=== PATIENT | female | born 1950 | race Caucasian/White ===

== ENCOUNTER → 2017-07-11 | Day surgery (SDC) | payer MEDICARE, OTHER ==
[2017-07-09 12:47] LABS: BASOPHILS % 0.7 % (0.0-1.0); EOSINOPHILS # (AUTO) 0.1 (0.0-0.4); EOSINOPHILS % 1.9 % (0.0-6.0); HEMATOCRIT 38.7 % (34.2-44.1); HEMOGLOBIN 12.5 g/dL (12.0-16.0); LYMPHOCYTES # (AUTO) 2.1 (1.0-3.2); LYMPHOCYTES % 34.9 % (18.0-39.1); MEAN CORPUSCULAR HEMOGLOBIN 32.5 pg (28-32); MEAN CORPUSCULAR HGB CONC 32.3 g/dL (31-35); MEAN CORPUSCULAR VOLUME 100.5 fL (81-99); MONOCYTES # (AUTO) 0.5 (0.2-0.8); MONOCYTES % 7.8 % (4.4-11.3); NEUTROPHILS # (AUTO) 3.2 (2.1-6.9); NEUTROPHILS % 54.5 % (38.7-80.0); PLATELET COUNT 250 x10e3/uL (140-360); RED BLOOD COUNT 3.85 x10e6/uL (3.6-5.1)
--- NOTE | 2017-07-09 12:48 | Diagnostic Imaging Report ---
PROCEDURE: X-RAY CHEST, TWO VIEWS COMPARISON: Chest CT 12/26/2016 INDICATIONS: PRE OPERATIVE CHEST X-RAY FOR CYSTOSCOPY FINDINGS: LUNGS: No consolidations or edema. Stable right lower lobe calcified granuloma. PLEURA: No effusions or pneumothorax. HEART \T\ MEDIASTINUM: The heart is within normal size-limits. BONES \T\ SOFT TISSUES: No acute findings. CONCLUSION: No acute thoracic abnormality. Dictated by: Emil Soto M.D. on 07/09/2017 at 12:56 Electronically approved by: Emil Soto M.D. on 07/09/2017 at 12:56
[2017-07-09 12:59] LABS: ANION GAP 14.4 mmol/L (8-16); CALCIUM 10.1 mg/dL (8.4-10.2); CREATININE, SERUM 1.83 mg/dL (0.57-1.11); POTASSIUM 4.4 mmol/L (3.5-5.1)
[~2017-07-11] MED LIST: ALDACTONE25 MG PO; ASPIR 8181 MG PO; ASPIRIN EC81 MG PO; BLACK COHOSH40 M1 PO; CLARITIN-D 241 EACH PO; DEXAMETHASONE SOD PHOS INJ 4 MG/ML VIAL ONE; DICYCLOMINE HCL10 MG PO; FENTANYL CITRATE/PF 100MCG/2 ML INJ ONE; FUROSEMIDE20 MG PO; IOPAMIDOL 610MG/1ML 300 MG/ML VIAL IV ONE; LEVOFLOXACIN 500MG/D5W 100ML 100 ML IV ONE; LIDOCAINE HCL 2% LOCAL INJ 5 ML SDV VIAL INJ ONE; LISINOPRIL10 MG PO; LYRICA50 MG PO; METOPROLOL SUCC50 MG PO; MIDAZOLAM HCL 2 MG/2 ML VIAL ONE; ONDANSETRON HCL INJ 2 MG/ML VIAL ONE; PANTOPRAZOLE SO40 MG PO; PRAVASTATIN PO; PROPOFOL IV EMULSION 10 MG/ML 20 ML VIAL ONE; SEVOFLURANE INHAL SOLN 250 ML PEN BTL ONE; TOPAMAX50 MG PO; TOPIRAMATE100 MG PO; TOPIRAMATE25 MG PO; XARELTO15 MG PO; [UNRECOGNIZED DRUG - OTHER] PO; [UNRECOGNIZED DRUG - OTHER] PO
--- NOTE | 2017-07-11 17:04 | Operative Report ---
DATE OF PROCEDURE: July 11, 2017 PREOPERATIVE DIAGNOSES 1. Multiple chronic urinary tract infections. 2. Clinical signs and symptoms of interstitial cystitis. POSTOPERATIVE DIAGNOSES 1. Multiple chronic urinary tract infections. 2. Clinical signs and symptoms of interstitial cystitis. PROCEDURES 1. Cystourethroscopy with hydrodistention (entirely separate procedure for clinical signs and symptoms of interstitial cystitis without hematuria). 2. Cystourethroscopy with left ureter catheterization and left retrograde pyelogram (separate procedure for multiple chronic urinary tract infections). 3. Cystourethroscopy with right ureter catheterization and right retrograde pyelogram (separate procedure for multiple chronic urinary tract infections). 4. Supervision of fluoroscopy. 5. Interpretation of retrograde pyelography. ANESTHESIA: General. ESTIMATED BLOOD LOSS: Minimal. COMPLICATIONS: None. INDICATIONS: Ms. Feldman is a 67-year-old female with multiple chronic urinary tract infections. She and I had a long discussion about alternatives, risks and benefits including doing nothing, cystoscopy, IVP, retrograde pyelograms, and renal ultrasound. Due to the nephrotoxic risks of dye, she elected to proceed with retrograde pyelograms. She voiced understanding of the options, alternatives, risks and benefits and elected to proceed. PROCEDURE IN DETAIL: After informed consent was obtained, the patient was taken to the operative suite and she was given prophylactic antibiotics. She was placed in the dorsal lithotomy position and sterilely prepped and draped in the standard fashion for cystoscopy. Atrophic vaginitis was noted. There was grade I to II cystocele. No evidence of masses. The urethra was catheterized with a 22.5-Iranian cystoscope and panendoscopy revealed no tumors and no stones. Both ureteral orifices were in normal anatomic location. There was some mild squamous metaplasia. Bilateral retrograde pyelograms were performed, which were normal. A hydrodistention was performed which revealed a capacity of 800 mL, no glomerulations and no Hunner's ulcers. The bladder was drained. The patient was awakened from anesthesia and transported to the recovery room in excellent condition. SUPERVISION OF FLUOROSCOPY, INTERPRETATION OF RETROGRADE PYELOGRAPHY: I was present throughout the entire procedure and I supervised the use of fluoroscopy. There was no radiologist present at any time during this procedure. Attention was turned toward the left and right ureteral orifices, which were catheterized with an 8-Iranian cone-tipped catheter in a retrograde fashion. Contrast was injected revealing delicate ureters, delicate pelvicaliceal systems, no evidence of filling defects and no evidence of hydronephrosis. IMPRESSION: Normal retrograde pyelograms. Job#: [id number] SHAWN
== END | disposition home or self-care (01) ==
LOC: OR 09:12
PROVIDERS: ATTEND Urology
DX: N39.0 Urinary tract infection, site not specified (principal); N95.2 Postmenopausal atrophic vaginitis; N39.46 Mixed incontinence; R35.1 Nocturia; I83.90 Asymptomatic varicose veins of unspecified lower extremity; G47.33 Obstructive sleep apnea (adult) (pediatric); K21.9 Gastro-esophageal reflux disease without esophagitis; K44.9 Diaphragmatic hernia without obstruction or gangrene; I12.9 Hypertensive chronic kidney disease with stage 1 through stage 4 chronic kidney disease, or unspecified chronic kidney disease; N18.9 Chronic kidney disease, unspecified; Z01.812 Encounter for preprocedural laboratory examination; Z01.818 Encounter for other preprocedural examination; Z79.02 Long term (current) use of antithrombotics/antiplatelets; Z86.718 Personal history of other venous thrombosis and embolism
CPT/HCPCS: 36415; 52005; 71020; 74420; 80048; 85025; C1758; J1100; J1956; J2001; J2250; J2405; Q9967

== ENCOUNTER → 2018-09-30 | Outpatient (CLI) | payer MEDICARE, OTHER ==
[~2018-09-30] MED LIST changes: -DEXAMETHASONE SOD PHOS INJ 4 MG/ML VIAL ONE; -FENTANYL CITRATE/PF 100MCG/2 ML INJ ONE; -IOPAMIDOL 610MG/1ML 300 MG/ML VIAL IV ONE; -LEVOFLOXACIN 500MG/D5W 100ML 100 ML IV ONE; -LIDOCAINE HCL 2% LOCAL INJ 5 ML SDV VIAL INJ ONE; -MIDAZOLAM HCL 2 MG/2 ML VIAL ONE; -ONDANSETRON HCL INJ 2 MG/ML VIAL ONE; -PROPOFOL IV EMULSION 10 MG/ML 20 ML VIAL ONE; -SEVOFLURANE INHAL SOLN 250 ML PEN BTL ONE
--- NOTE | 2018-09-30 18:27 | Diagnostic Imaging Report ---
EXAMINATION: CT of the face HISTORY: Facial trauma a week ago, status post fall, hit the face again concrete floor, bleeding. COMPARISON: None available TECHNIQUE: Multidetector helical axial images were acquired through the face without contrast and were reconstructed in bone and soft tissue algorithms. Images were viewed in multiplanar format. Dose modulation, iterative reconstruction, and/or weight based adjustment of the mA/kV was utilized to reduce the radiation dose to as low as reasonably achievable. FINDINGS: Bones: No acute facial fractures Facial soft tissues: Mild right forehead soft tissue swelling/abrasion, minimal periorbital and right premaxillary soft tissue swelling is also noted. Paranasal sinuses and drainage pathways: The frontal, ethmoidal, sphenoid and maxillary sinuses are clear. The ostiomeatal units, fronto-nasal and spheno-ethmoidal recesses are clear. Orbits contents: Unremarkable. Nasal septum: Right superior deviation Anatomic variations: No significant anatomic variations. Dentition: No acute abnormality of the visualized teeth. IMPRESSION: Right forehead, periorbital and premaxillary region soft tissue swelling without underlying acute facial fractures. The findings were discussed with DONYA Esquivel at the time of the dictation. Signed by: Dr. Adalgisa Chan M.D. on 09/30/2018 6:24 PM
== END ==
LOC: CT 17:15
PROVIDERS: ATTEND Family Medicine
DX: S00.11XD Contusion of right eyelid and periocular area, subsequent encounter (principal)
CPT/HCPCS: 70486

== ENCOUNTER → 2019-02-09 | Outpatient (CLI) | payer MEDICARE, OTHER ==
--- NOTE | 2019-02-09 15:32 | Diagnostic Imaging Report ---
EXAM: Renal Ultrasound INDICATION: ^URINARY TRACT INFECTION COMPARISON: None TECHNIQUE: Transverse and longitudinal images of the kidneys and bladder were obtained. FINDINGS: Right Kidney: Length: 10.5 cm Appearance: Normal echogenicity. Collecting system: No hydronephrosis Stones: None Cyst/Mass: None Left Kidney: Length: 9.7 cm Appearance: Normal echogenicity. Collecting system: No hydronephrosis Stones: Echogenic focus at the midpole measuring 3 mm with twinkle artifact. Cyst/Mass: Upper pole 1.4 x 0.9 x 1.4 cm simple cyst. Lower pole 1.2 x 1.2 x 1.0 cm simple cyst. Bladder: No mass or calculi. Estimated prevoid volume of 67 cc. Bilateral ureteral jets seen. Incidental note made of multiple echogenic foci throughout the spleen, consistent with calcified granulomas. IMPRESSION: No hydronephrosis. Left mid pole 3 mm echogenic focus with twinkle artifact may represent a nonobstructive calculus. Left upper and lower pole simple cysts as above. Signed by: Loco Escobedo MD on 02/09/2019 3:29 PM
== END ==
LOC: US 14:17
PROVIDERS: ATTEND Urology
DX: N39.0 Urinary tract infection, site not specified (principal)
CPT/HCPCS: 76770

== ENCOUNTER → 2020-01-04 | Day surgery (SDC) | payer MEDICARE, OTHER ==
[2019-12-31 11:36] LABS: BASOPHILS # (AUTO) 0.1 (0.0-0.1); BASOPHILS % 1.3 % (0.0-1.0); EOSINOPHILS # (AUTO) 0.4 (0.0-0.4); EOSINOPHILS % 6.3 % (0.0-6.0); HEMATOCRIT 31.1 % (34.2-44.1); HEMOGLOBIN 9.3 g/dL (12.0-16.0); LYMPHOCYTES # (AUTO) 1.8 (1.0-3.2); LYMPHOCYTES % 28.6 % (18.0-39.1); MEAN CORPUSCULAR HEMOGLOBIN 32.4 pg (28-32); MEAN CORPUSCULAR HGB CONC 29.9 g/dL (31-35); MEAN CORPUSCULAR VOLUME 108.4 fL (81-99); MONOCYTES # (AUTO) 0.7 (0.2-0.8); MONOCYTES % 10.2 % (4.4-11.3); NEUTROPHILS # (AUTO) 3.4 (2.1-6.9); NEUTROPHILS % 53.3 % (38.7-80.0); PLATELET COUNT 285 x10e3/uL (140-360); RED BLOOD COUNT 2.87 x10e6/uL (3.6-5.1); RED CELL DISTRIBUTION WIDTH 13.8 % (11.7-14.4)
[~2020-01-04] MED LIST changes: +FENTANYL CITRATE/PF 100MCG/2 ML INJ ONE; +GLUCAGON FOR INJ 1 MG VIAL ONE; +HYOSCYAMINE 0.125 MG TAB ONE; +LIDOCAINE HCL 2% LOCAL INJ 5 ML SDV VIAL INJ ONE; +MIDAZOLAM HCL 2 MG/2 ML VIAL ONE; +NAPROXEN250 MG PO; +OXYBUTYNIN CHLOR5 M1 PO; +PROPOFOL IV EMULSION 10 MG/ML 20 ML VIAL ONE
[2020-01-04 13:15] VITALS: BP 126/59
[2020-01-04 14:43] LABS: WBC,FECAL (FECAL LACTOFERRIN) NEGATIVE (NEGATIVE)
--- NOTE | 2020-01-04 14:54 | Operative Report ---
DATE OF PROCEDURE: 01/04/2020 SURGEON: Neil Gaona MD PROCEDURES: EGD with biopsies and colonoscopy with polypectomy and biopsies. INDICATIONS FOR EGD: Upper abdominal pain, heartburn. INDICATIONS FOR COLONOSCOPY: Surveillance colonoscopy, personal history of colon polyps, diarrhea. MEDICATIONS: The patient was done under MAC, please see anesthesiologist's note. PROCEDURE IN DETAIL: With the patient in the left lateral decubitus position, a flexible fiberoptic Olympus gastroscope was introduced into the esophagus under direct visualization without any difficulty. There was some patchy erythema noted in the distal esophagus. The scope was then advanced with ease into the stomach traversing a small hiatal hernia. Mucosa overlying the antrum and the body revealed some patchy erythema and [id number] edema, and biopsies were obtained and sent to stain for H. pylori. Pylorus was of normal contour and shape, was intubated with ease and the scope was advanced all the way to the second portion of the duodenum. Biopsies were obtained from the proximal second portion and the duodenal bulb to rule out sprue. The scope was then withdrawn back into the stomach and retroflexed, and mucosa overlying the fundus and the cardia appeared to be within normal limits. The scope was then straightened out, it was subsequently withdrawn, and the patient tolerated the procedure well. IMPRESSION: 1. Distal esophagitis, mild. 2. Small hiatal hernia. 3. Gastritis, biopsied, biopsies sent to stain for Helicobacter pylori. 4. Rule out sprue. PLAN: Follow up histology. Initiate Protonix 40 mg one p.o. q.a.m. before meals. The patient was then turned around and after adequate lubrication of the anal canal, a flexible fiberoptic Olympus colonoscope was inserted into the rectum with ease and advanced all the way to the cecum. Mucosa overlying the cecum appeared to be within normal limits. The ileocecal valve could not be intubated. The scope was then withdrawn slowly, mucosa overlying the ascending appeared to be within normal limits. A minute polyp was noted in the distal transverse that was removed per the cold biopsy forceps. Mild patchy inflammatory changes noted in the left colon and the rectum, and random biopsies were obtained. The scope was then retroflexed into the distal rectum and small internal hemorrhoids were noted, none of which was actively bleeding. The scope was then straightened out and it was subsequently withdrawn after securing an adequate stool specimen that was sent for the appropriate stool studies. The patient tolerated the procedure well. IMPRESSION: 1. Transverse colon polyp, removed per the cold biopsy forceps. 2. Mild patchy inflammatory changes left colon, biopsies obtained. 3. Proctitis, mild, biopsied. 4. Internal hemorrhoids, none actively bleeding. PLAN: Follow up histology. Follow up stool studies. Initiate Bentyl 10 mg one p.o. t.i.d. and VSL#3 one p.o. b.i.d. The patient might benefit from a followup colonoscopy in 5 years. Neil Gaona MD [facility] /[id number] cc: Branden Murphy DO
[2020-01-05 15:43] LABS: C DIFFICILE TOXIN A&B AMP PROB NEGATIVE (NEGATIVE)
== END | disposition home or self-care (01) ==
LOC: OR 08:59
PROVIDERS: ATTEND Internal Medicine Gastroenterology
DX: K29.50 Unspecified chronic gastritis without bleeding (principal); K63.5 Polyp of colon; K20.9 Esophagitis, unspecified; K21.9 Gastro-esophageal reflux disease without esophagitis; K44.9 Diaphragmatic hernia without obstruction or gangrene; K62.89 Other specified diseases of anus and rectum; K63.89 Other specified diseases of intestine; K64.8 Other hemorrhoids; B96.81 Helicobacter pylori [H. pylori] as the cause of diseases classified elsewhere; I10 Essential (primary) hypertension; D64.9 Anemia, unspecified; I44.0 Atrioventricular block, first degree; I49.3 Ventricular premature depolarization; M19.90 Unspecified osteoarthritis, unspecified site; Z91.041 Radiographic dye allergy status; Z88.0 Allergy status to penicillin; Z01.810 Encounter for preprocedural cardiovascular examination; Z01.812 Encounter for preprocedural laboratory examination; Z11.59 Encounter for screening for other viral diseases; Z79.02 Long term (current) use of antithrombotics/antiplatelets; Z86.711 Personal history of pulmonary embolism; Z80.0 Family history of malignant neoplasm of digestive organs
CPT/HCPCS: 36415; 43239; 45380; 83630; 83993; 85025; 87045; 87177; 87328; 87493; 87635; 88305; 88312; 93005; J1610; J2001; J2250; J2704; J3010; 45378

== ENCOUNTER → 2020-01-18 | Outpatient (CLI) | payer MEDICARE, OTHER ==
[~2020-01-18] MED LIST changes: -FENTANYL CITRATE/PF 100MCG/2 ML INJ ONE; -GLUCAGON FOR INJ 1 MG VIAL ONE; -HYOSCYAMINE 0.125 MG TAB ONE; -LIDOCAINE HCL 2% LOCAL INJ 5 ML SDV VIAL INJ ONE; -MIDAZOLAM HCL 2 MG/2 ML VIAL ONE; -PROPOFOL IV EMULSION 10 MG/ML 20 ML VIAL ONE
--- NOTE | 2020-01-18 10:39 | Diagnostic Imaging Report ---
EXAM: Renal Ultrasound INDICATION: ^UTI COMPARISON: None TECHNIQUE: Transverse and longitudinal images of the kidneys and bladder were obtained. FINDINGS: Right Kidney: Length: 10.0 cm Appearance: Normal echogenicity. Collecting system: No hydronephrosis Stones: None Cyst/Mass: None Left Kidney: Length: 9.2 cm Appearance: Normal echogenicity. Collecting system: No hydronephrosis Stones: None Cyst/Mass: Upper pole 1.7 cm anechoic simple cyst and lower pole 1.3 cm anechoic simple cyst. Bladder: No mass or calculi. Bilateral ureteral jets visualized. Prevoid volume estimate of 219cc. IMPRESSION: No hydronephrosis or renal calculi. Left renal simple cysts. Signed by: Loco Escobedo MD on 01/18/2020 10:35 AM
== END ==
LOC: US 08:15
PROVIDERS: ATTEND Urology
DX: N39.0 Urinary tract infection, site not specified (principal)
CPT/HCPCS: 76770

== ENCOUNTER → 2020-02-09 | Day surgery (SDC) | payer MEDICARE, OTHER ==
[2020-02-04 09:33] LABS: BASOPHILS # (AUTO) 0.1 (0.0-0.1); BASOPHILS % 1.4 % (0.0-1.0); EOSINOPHILS # (AUTO) 0.4 (0.0-0.4); EOSINOPHILS % 7.5 % (0.0-6.0); HEMATOCRIT 32.3 % (34.2-44.1); HEMOGLOBIN 9.8 g/dL (12.0-16.0); LYMPHOCYTES # (AUTO) 1.7 (1.0-3.2); MEAN CORPUSCULAR HEMOGLOBIN 30.3 pg (28-32); MEAN CORPUSCULAR HGB CONC 30.3 g/dL (31-35); MONOCYTES # (AUTO) 0.6 (0.2-0.8); MONOCYTES % 11.6 % (4.4-11.3); NEUTROPHILS # (AUTO) 2.4 (2.1-6.9); NEUTROPHILS % 46.3 % (38.7-80.0); PLATELET COUNT 222 x10e3/uL (140-360); RED BLOOD COUNT 3.23 x10e6/uL (3.6-5.1); RED CELL DISTRIBUTION WIDTH 11.9 % (11.7-14.4)
[2020-02-04 09:46] LABS: INR 0.93; PROTHROMBIN TIME 12.9 seconds (11.9-14.5)
[2020-02-04 09:47] LABS: PARTIAL THROMBOPLASTIN TIME 31.7 seconds (23.8-35.5)
[2020-02-04 09:54] LABS: ANION GAP 10.5 mmol/L (8-16); CALCIUM 9.6 mg/dL (8.4-10.2); CREATININE, SERUM 1.15 mg/dL (0.57-1.11); POTASSIUM 4.5 mmol/L (3.5-5.1)
--- NOTE | 2020-02-04 10:08 | Diagnostic Imaging Report ---
X-ray chest 2 views Comparison: None History: Preop Findings: Central airways unremarkable. Heart size enlarged. Atherosclerotic tortuous aorta. No pleural effusion. No pneumothorax. An oval nodule measuring 5 mm in the right lower lung zone. Otherwise lung charles unremarkable. No abnormality of the visualized skeletal structures on acute basis. Upper abdomen unremarkable. Impression: A small right lung nodules. Comparison with previous imaging or a chest CT should be considered. Otherwise unremarkable. Signed by: iRshi Thornton MD on 02/04/2020 10:05 AM
[~2020-02-09] MED LIST changes: +ACETAMINOPHEN 1000 MG/100 ML IV ONE; +BACITRACIN 50,000 UNIT VIAL ONE; +CEFAZOLIN SOD 1 GM/NS 50ML 100 ML IV ONE; +DEXAMETHASONE SOD PHOS INJ 4 MG/ML VIAL ONE; +FENTANYL CITRATE/PF 100MCG/2 ML INJ ONE; +FOLIC ACID PO; +HYDROCODONE/APAP 10MG-325MG TAB ONE; +KETOROLAC TROMETHAMINE 30 MG/ML VIAL ONE; +LIDOCAINE HCL 2% LOCAL INJ 5 ML SDV VIAL INJ ONE; +MONTELUKAST SOD10 MG PO; +ONDANSETRON HCL INJ 2MG/ML 2ML 2 MG/ML VIAL ONE; +PROPOFOL IV EMULSION 10 MG/ML 20 ML VIAL ONE; +ROPIVACAINE 0.5% 5 MG/ML 30 ML SDV ONE; +ROPIVACAINE 246.25 MG, EPINEPHRINE HCL 1:1000 1ML 0.5 MG, CLONIDINE HCL 0.08 MG, KETORO... INJ ONE; +TRANEXAMIC ACID 1,000 MG/10 ML ML ONE
--- NOTE | 2020-02-09 09:06 | Diagnostic Imaging Report ---
X-ray right knee 3 views History: Postoperative Findings: Status post right knee total arthroplasty with orthopedic hardware in alignment. Anterior surgical staple line, soft tissue swelling and air consistent with the postop status. Impression: Post right knee total arthroplasty. Signed by: Rishi Thornton MD on 02/09/2020 9:03 AM
[2020-02-09 13:35] VITALS: BP 105/55
--- NOTE | 2020-02-09 15:28 | Operative Report ---
DATE OF PROCEDURE: 02/09/2020 SURGEON: LYNN CASH MD LOCATION: Place of surgery is [facility]. HISTORY: Ms. Feldman is a well-known patient of mine. I have been seeing for several years. Recently being treating her for pain of her right knee. The 4 efforts of conservative treatment was completed, consisting of multiple injections, anti-inflammatories, home therapy program or NSAIDs, all of which have failed to resolve her pain symptoms fully and/or completely. The patient elected to proceed along with right total knee arthroplasty and to forgo any further conservative treatment. The risks and benefits of surgery outlined to her, consisting but not limited to the following: Infection, blood loss, nerve, vessel or tendon injury, DVT, ongoing pain, stiffness, leg-length discrepancy, nerve injury including a peroneal palsy and/or neurapraxia. DESCRIPTION OF PROCEDURE: The patient was seen and identified in the preoperative holding area. The right knee was marked by myself. The patient agreed. Consent was confirmed. The patient received regional block by Anesthesia and then brought back to the operative suite. Time-out was taken for Ms. Iva Feldman for right total knee arthroplasty. All were in agreement including nursing staff, Anesthesia, and myself. The patient was given a successful general intubation anesthetic. The patient was then transferred over to the operative table. A nonsterile tourniquet was placed high in the right upper thigh. The right lower extremity was then sterilely prepped and draped in the usual standard fashion. The limb was exsanguinated and the tourniquet was inflated to approximately 250 mmHg. The initial 10 Bard-Vinod blade was used to make the initial skin incision starting from the superior pole of the patella extending down to the tibial tuberosity. A second knife was then used to make an incision, the medial arthrotomy was made. Degenerative joint fluid was suctioned out. The patella was then carefully everted and the knee carefully flexed up, protecting the patellar tendon at all times. The patient has significant complete cartilage loss of all three compartments. There is significant scalloping of the medial tibial plateau. The remnant medial and lateral meniscus were resected. Medial and lateral retractors were placed in protecting the medial and lateral collateral ligaments as well as the lateral peroneal nerve throughout the entire procedure. The remnant ACL was resected. FEMORAL COMPONENT: The drill guide was used to make the entry point for the intramedullary femoral guide, which was placed in. Resection cut was made of the distal femur in 3 degrees of external rotation, 5 degrees of valgus. The femur was then sized and measured to be a size #4, and 4-in-1 cutting block was impacted. An oscillating saw was used to complete the anterior and posterior chamfer cuts were then completed. A trial #4 CR right femur was placed and had excellent fit circumferentially. TIBIAL COMPONENT: Attention was then turned to the tibial side. The tibial guide was placed in alignment with regard to proximal third of the tibial tuberosity, tibial shaft, and distal ankle joint and 2nd ray. Given the defect on the medial side, I went ahead and measured of the high side. A resection cut was made perpendicular to the tibia shaft with posterior 5-degree slope. The tibia was found and sized to be a measured size #4. The four universal tibial baseplate was placed in the correct rotation and alignment using 4 alignment rods proximally and distally with knee in full extension. Essential punch and keel were then completed. A trial reduction was carried out with a 9, 11, and 13 mm CS poly. The 13 mm CS poly gave the most stable fit, reestablishing the joint line. There is no instability at 0, 30, 60, and 90 degrees of flexion as well as full extension. PATELLA: Attention was then turned to the patella side. Resection cut was made off the patella to approximately 14 to 16 mm. The patella sized to 35. The 35 asymmetric patella was then correctly lateralized and the peg hole drills. Upon range of motion testing, the patient had excellent patellofemoral tracking throughout the entire arc of motion. Again, there was no varus or valgus or anterior or posterior instability noted. The trial components were removed. Copious irrigation was carried out with 6 L of antibiotic saline solution. A posterior intracapsular HANNY injection was completed with 100 mL of cocktail mixture in the usual standard fashion. The first, second, and final counts were found to be correct. Antibiotic cement was mixed on the back table and the final prosthesis was placed in consisting of a Holden Triathlon #4 CR right femur with a #4 universal tibial baseplate, with a 35 asymmetric patella with a 4 x 13 mm CS poly insert. The knee was allowed to harden in full extension and all the excess cement was removed. Final irrigation was carried out. Final counts were found to be correct. Upon range of motion testing, again the patient had excellent patellofemoral tracking throughout the entire arc of motion. There is no varus or valgus instability. No anterior-posterior instability with 0, 30, 60, and 90 degrees of flexion as well as full extension. The tourniquet was released. There was no acute pulsatile bleeding noted. Deep layer closure was completed beginning with capsule, 5 Ethibond, 0 Vicryl, 2-0 Vicryl. Skin was reapproximated with angelina and the patient was placed in Xeroform compressive dressing and subsequently transferred to PACU after successful extubation in stable condition. PREOPERATIVE DIAGNOSIS: Degenerative joint disease of the right knee. 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 PROCEDURE: Right total knee arthroplasty with the following components: 1. A Holden Triathlon #4 CR right femur, #4 universal tibial baseplate, 35 asymmetrical patella, with a CS poly insert 4 x 13 mm. 2. Intraarticular intracapsular HANNY injection of the right knee. ANESTHESIA: Regional block with general intubation anesthetic. ESTIMATED BLOOD LOSS: 100 mL. SPECIMENS: Bone and soft tissue. COMPLICATIONS: None. CONDITION: Stable to PACU. Again, intraoperative findings severe tricompartmental degenerative joint disease of the right knee. The patient was seen in PACU dressings are clean and dry. Capillary refills are brisk. Pain is well controlled. I did attempt to locate the after surgery, but he was not present locally. I did attempt to call him at [phone], as well as [phone], but there is no reply. However, discharge wound care instructions are given to the patient prior to surgery. She is discharged with Lovenox, Keflex, Erwin. Follow up in the Orthopedic Clinic in 2 weeks. The patient's outpatient therapy has been arranged to confirm starting tomorrow. MD ROSELINE HOLT/LAYO /[id number]
== END | disposition home or self-care (01) ==
LOC: OR 05:05
PROVIDERS: ATTEND Orthopaedic Surgery
DX: M17.11 Unilateral primary osteoarthritis, right knee (principal); M22.41 Chondromalacia patellae, right knee; I10 Essential (primary) hypertension; E78.5 Hyperlipidemia, unspecified; I83.90 Asymptomatic varicose veins of unspecified lower extremity; N39.0 Urinary tract infection, site not specified; K28.9 Gastrojejunal ulcer, unspecified as acute or chronic, without hemorrhage or perforation; K21.9 Gastro-esophageal reflux disease without esophagitis; K44.9 Diaphragmatic hernia without obstruction or gangrene; B96.81 Helicobacter pylori [H. pylori] as the cause of diseases classified elsewhere; Z91.041 Radiographic dye allergy status; Z91.013 Allergy to seafood; Z01.810 Encounter for preprocedural cardiovascular examination; Z01.812 Encounter for preprocedural laboratory examination; Z01.818 Encounter for other preprocedural examination; Z11.59 Encounter for screening for other viral diseases; Z79.02 Long term (current) use of antithrombotics/antiplatelets; Z68.32 Body mass index [BMI] 32.0-32.9, adult; Z87.891 Personal history of nicotine dependence
CPT/HCPCS: 27447; 36415; 71046; 73562; 80048; 85025; 85610; 85730; 86850; 86900; 93005; 97110; 97116; 97161; C1713 ×5; J0131; J0171; J0690; J1100; J1885; J2001; J2405; J2704; J2795; J3010; U0002; 86920

== ENCOUNTER → 2020-03-07 | Outpatient (RCR) | payer MEDICARE, OTHER ==
[~2020-03-07] MED LIST changes: -ACETAMINOPHEN 1000 MG/100 ML IV ONE; -BACITRACIN 50,000 UNIT VIAL ONE; -CEFAZOLIN SOD 1 GM/NS 50ML 100 ML IV ONE; -DEXAMETHASONE SOD PHOS INJ 4 MG/ML VIAL ONE; -FENTANYL CITRATE/PF 100MCG/2 ML INJ ONE; -HYDROCODONE/APAP 10MG-325MG TAB ONE; -KETOROLAC TROMETHAMINE 30 MG/ML VIAL ONE; -LIDOCAINE HCL 2% LOCAL INJ 5 ML SDV VIAL INJ ONE; -ONDANSETRON HCL INJ 2MG/ML 2ML 2 MG/ML VIAL ONE; -PROPOFOL IV EMULSION 10 MG/ML 20 ML VIAL ONE; -ROPIVACAINE 0.5% 5 MG/ML 30 ML SDV ONE; -ROPIVACAINE 246.25 MG, EPINEPHRINE HCL 1:1000 1ML 0.5 MG, CLONIDINE HCL 0.08 MG, KETORO... INJ ONE; -TRANEXAMIC ACID 1,000 MG/10 ML ML ONE
== END ==
LOC: PT 02-10 10:16
PROVIDERS: ATTEND Orthopaedic Surgery
DX: M17.11 Unilateral primary osteoarthritis, right knee (principal); M22.41 Chondromalacia patellae, right knee; M25.561 Pain in right knee; M25.461 Effusion, right knee
CPT/HCPCS: 97139

== ENCOUNTER → 2020-03-18 | Outpatient (CLI) | payer MEDICARE, OTHER ==
[~2020-03-18] MED LIST changes: +IOPAMIDOL 370 MG/ML 200 ML INFUS..BTL INJ ONE; +SODIUM CHLORIDE 0.9% 500ML 500 ML ONE; +SODIUM CHLORIDE 0.9% 50ML 50 ML ONE
[2020-03-18 16:12] LABS: CREATININE, SERUM 1.29 mg/dL (0.57-1.11)
--- NOTE | 2020-03-18 17:55 | Diagnostic Imaging Report ---
EXAM: CT Chest WITH contrast 03/18/2020 4:40 PM INDICATION: Follow-up of abnormal chest x-ray COMPARISON: Chest x-ray on 02/04/2020. TECHNIQUE: Chest was scanned utilizing a multidetector helical scanner from the lung apex through the level of the adrenal glands with administration of IV contrast. Coronal and sagittal reformations were obtained. Routine protocol was performed. IV CONTRAST: 100 mL of Omnipaque 300 COMPLICATIONS: None RADIATION DOSE: Total DLP: 549.57 mGy*cm Estimated effective dose: (DLP x 0.014 x size factor) mSv CTDIvol has been reviewed. It is below the limits set by the Radiation Protocol Committee (RPC). Dose modulation, iterative reconstruction, and/or weight based adjustment of the mA/kV was utilized to reduce the radiation dose to as low as reasonably achievable. FINDINGS: LINES/ TUBES: None. VASCULAR: There are no filling defects within the pulmonary arteries to the segmental level. The pulmonary trunk has normal caliber measuring 1.9 cm. The ascending and descending aorta have normal caliber measuring 3.5 cm and 2.6 cm, respectively. There is mild atherosclerotic calcification of the thoracic aorta arch. LUNGS, AIRWAYS AND PLEURA: Evaluation of the lungs is limited by respiratory motion artifact. The 5 mm nodule seen by plain radiograph in the right lower lobe represents a calcified granuloma. No suspicious pulmonary nodules or masses. No focal consolidation, pleural effusion or pneumothorax. The central airways are patent and the trachea is midline. There is bibasilar atelectasis. HEART AND MEDIASTINUM: The thyroid gland is normal. There are prominent mediastinal lymph nodes, none of which meet criteria for pathologic enlargement. No mediastinal, hilar or axillary lymphadenopathy. The heart is normal in size with mild atherosclerotic calcification of the coronary vessels. There is no pericardial effusion. UPPER ABDOMEN: There is mild atherosclerotic calcification of the proximal abdominal aorta. There are multifocal punctate calcifications in the spleen, likely from prior granulomatous infection. There is a small hiatal hernia. Remainder of the imaged upper abdomen is unremarkable. BONES: There are degenerative changes in the thoracic spine. SOFT TISSUES: Unremarkable. IMPRESSION: 1. The 5 mm nodule seen in the right lower lobe on recent chest radiograph corresponds to a calcified granuloma. No additional follow-up indicated. 2. No evidence of pulmonary embolism. 3. Small hiatal hernia. Signed by: Zachary Amaral MD on 03/18/2020 5:52 PM
== END ==
LOC: CT 15:37
PROVIDERS: ATTEND Family Medicine
DX: R93.89 Abnormal findings on diagnostic imaging of other specified body structures (principal)
CPT/HCPCS: 36415; 71260; 82565; 84520; 96360; J7040; Q9967

== ENCOUNTER 2020-04-04 09:00 | Outpatient (RCR) | payer MEDICARE, OTHER ==
[~2020-04-04 09:00] MED LIST changes: -IOPAMIDOL 370 MG/ML 200 ML INFUS..BTL INJ ONE; -SODIUM CHLORIDE 0.9% 500ML 500 ML ONE; -SODIUM CHLORIDE 0.9% 50ML 50 ML ONE
== END 2020-04-06 ==
LOC: PT 09:00
PROVIDERS: ATTEND Orthopaedic Surgery
DX: M17.11 Unilateral primary osteoarthritis, right knee (principal); M22.41 Chondromalacia patellae, right knee; M25.461 Effusion, right knee; M25.561 Pain in right knee

== ENCOUNTER 2020-04-28 09:00 | Outpatient (RCR) | payer MEDICARE, OTHER | END 2020-05-07 | LOC: PT 09:00 | PROVIDERS: ATTEND Orthopaedic Surgery | DX: M17.11 Unilateral primary osteoarthritis, right knee (principal); M22.41 Chondromalacia patellae, right knee; M25.461 Effusion, right knee; M25.561 Pain in right knee ==

== ENCOUNTER → 2020-07-11 | Outpatient (CLI) | payer MEDICARE, OTHER | LOC: MRI 08:31 | PROVIDERS: ATTEND Family Medicine | DX: M79.645 Pain in left finger(s) (principal) ==

== ENCOUNTER → 2020-12-13 | Outpatient (CLI) | payer MEDICARE, OTHER | LOC: US 08:53 | PROVIDERS: ATTEND Urology | DX: N28.1 Cyst of kidney, acquired (principal) | CPT/HCPCS: 76770 ==

== ENCOUNTER 2021-04-30 11:47 | Inpatient (IN) | payer MEDICARE, OTHER ==
[~2021-04-30] VITALS: Ht 162.6 cm; Wt 82.1 kg
[2021-04-30] MEDS ORDERED: SODIUM CHLORIDE 0.9% 1000ML 1,000 ML IV STA ×2 (11:57→14:07)
[2021-04-30 12:16] LABS: BASOPHILS # (AUTO) 0.1 (0.0-0.1); BASOPHILS % 0.4 % (0.0-1.0); EOSINOPHILS # (AUTO) 0.1 (0.0-0.4); EOSINOPHILS % 0.4 % (0.0-6.0); HEMATOCRIT 36.1 % (34.2-44.1); HEMOGLOBIN 11.9 g/dL (12.0-16.0); LYMPHOCYTES # (AUTO) 1.8 (1.0-3.2); LYMPHOCYTES % 12.6 % (18.0-39.1); MEAN CORPUSCULAR HEMOGLOBIN 31.6 pg (28-32); MONOCYTES # (AUTO) 0.7 (0.2-0.8); MONOCYTES % 4.7 % (4.4-11.3); NEUTROPHILS # (AUTO) 11.6 (2.1-6.9); NEUTROPHILS % 80.9 % (38.7-80.0); PLATELET COUNT 134 x10e3/uL (140-360); RED BLOOD COUNT 3.76 x10e6/uL (3.6-5.1); RED CELL DISTRIBUTION WIDTH 13.1 % (11.7-14.4)
[2021-04-30 12:26] LABS: INR 1.65; PARTIAL THROMBOPLASTIN TIME 35.3 seconds (23.8-35.5); PROTHROMBIN TIME 20.2 seconds (11.9-14.5)
[2021-04-30] MEDS ORDERED: ONDANSETRON HCL INJ 2MG/ML 2ML 2 MG/ML VIAL IV ONE (12:30)
[2021-04-30 12:35] LABS: ALBUMIN 2.5 g/dL (3.5-5.0); ALBUMIN/GLOBULIN RATIO 0.6 (0.8-2.0); ANION GAP 19.1 mmol/L (8-16); CALCIUM 9.3 mg/dL (8.4-10.2); CREATININE, SERUM 5.18 mg/dL (0.57-1.11); MAGNESIUM 2.3 MG/DL (1.3-2.1); POTASSIUM 4.1 mmol/L (3.5-5.1)
[2021-04-30 12:41] LABS: CREATINE KINASE MB 3.5 ng/mL (0-5.0)
[2021-04-30 13:14] LABS: LYMPHOCYTES % (MANUAL) 8 % (19-48); MONOCYTES % (MANUAL) 3 % (3.4-9.0); NEUTROPHILS % (MANUAL) 86 % (40-74); PLATELET ESTIMATE ADEQUATE; PLATELET MORPHOLOGY COMMENT NORMAL; RBC MORPHOLOGY COMMENT NORMAL
[2021-04-30 13:34] LABS: CLARITY,URINE HAZY (CLEAR); COLOR,URINE STRAW (YELLOW); KETONES,URINE TRACE (NEGATIVE); LEUKOCYTE ESTERASE ,URINE NEGATIVE (NEGATIVE); NITRITE,URINE NEGATIVE (NEGATIVE); PROTEIN,URINE DIPSTICK 2+ (NEGATIVE); URINE UROBILINOGEN 0.2 mg/dL (0.2 - 1)
[2021-04-30 13:45] LABS: AMORPHOUS SEDIMENT,URINE MANY (FEW); BACTERIA,URINE FEW /HPF
[2021-04-30] MEDS ORDERED: CEFTRIAXONE 1 GM in SODIUM CHLORIDE 0.9% 50ML 50 ML IV SCH (14:30)
[2021-04-30] MEDS ORDERED: ONDANSETRON HCL INJ 2MG/ML 2ML 2 MG/ML VIAL IV PRN (15:00)
[2021-04-30] MEDS: SODIUM CHLORIDE 0.9% 1000ML 1,000 ML IV SCH (18:11)
[2021-04-30 19:09] LABS: CREATINE KINASE MB 3.4 ng/mL (0-5.0)
[2021-04-30 20:00] VITALS: BP 89/48
[2021-04-30 21:00] VITALS: BP 89/48
[2021-04-30] MEDS: MONTELUKAST SODIUM 10 MG TAB PO SCH (21:09)
[2021-04-30] MEDS ORDERED: SODIUM CHLORIDE 0.9% 1000ML 250 ML IV ONE (21:15)
[2021-05-01] VITALS (8 sets, daily range): BP systolic 93–113; BP diastolic 48–69
[2021-05-01] MEDS: SODIUM CHLORIDE 0.9% 1000ML 1,000 ML IV SCH ×2 (00:18→08:21)
[2021-05-01] MEDS: CEFTRIAXONE 1 GM in SODIUM CHLORIDE 0.9% 50ML 50 ML IV SCH ×2 (03:17→17:26)
[2021-05-01 05:28] LABS: BASOPHILS % 0.4 % (0.0-1.0); EOSINOPHILS % 0.3 % (0.0-6.0); HEMATOCRIT 28.2 % (34.2-44.1); HEMOGLOBIN 9.1 g/dL (12.0-16.0); LYMPHOCYTES # (AUTO) 1.4 (1.0-3.2); LYMPHOCYTES % 19.5 % (18.0-39.1); MEAN CORPUSCULAR HEMOGLOBIN 31.5 pg (28-32); MEAN CORPUSCULAR HGB CONC 32.3 g/dL (31-35); MEAN CORPUSCULAR VOLUME 97.6 fL (81-99); MONOCYTES # (AUTO) 0.4 (0.2-0.8); NEUTROPHILS # (AUTO) 5.3 (2.1-6.9); NEUTROPHILS % 72.7 % (38.7-80.0); PLATELET COUNT 125 x10e3/uL (140-360); RED BLOOD COUNT 2.89 x10e6/uL (3.6-5.1); RED CELL DISTRIBUTION WIDTH 13.2 % (11.7-14.4)
[2021-05-01 05:52] LABS: CREATINE KINASE MB 2.1 ng/mL (0-5.0)
[2021-05-01 06:08] LABS: ALBUMIN 1.8 g/dL (3.5-5.0); ALBUMIN/GLOBULIN RATIO 0.6 (0.8-2.0); ANION GAP 12.8 mmol/L (8-16); CALCIUM 7.4 mg/dL (8.4-10.2); CREATININE, SERUM 3.38 mg/dL (0.57-1.11); POTASSIUM 3.8 mmol/L (3.5-5.1)
[2021-05-01] MEDS: RIVAROXABAN 15 MG TABLET PO SCH (08:22)
[2021-05-01] MEDS ORDERED: OXYBUTYNIN CHLORIDE XL 5 MG TAB PO SCH (09:00)
[2021-05-01 10:09] LABS: LYMPHOCYTES % (MANUAL) 9 % (19-48); MONOCYTES % (MANUAL) 4 % (3.4-9.0); NEUTROPHILS % (MANUAL) 87 % (40-74); PLATELET ESTIMATE SLIGHTLY DECREASED; PLATELET MORPHOLOGY COMMENT NORMAL; RBC MORPHOLOGY COMMENT NORMAL
[2021-05-01] MEDS: LACTATED RINGER'S 1,000 ML INJ SCH ×2 (14:58→20:52)
[2021-05-01] MEDS: CALCIUM CARBONATE 500 MG CHEWABLE TABS PO SCH ×2 (17:26→20:52)
[2021-05-01] MEDS: MONTELUKAST SODIUM 10 MG TAB PO SCH (20:52)
[2021-05-02] VITALS (9 sets, daily range): BP systolic 129–145; BP diastolic 55–76
[2021-05-02] MEDS: CEFTRIAXONE 1 GM in SODIUM CHLORIDE 0.9% 50ML 50 ML IV SCH ×2 (03:11→15:03)
[2021-05-02 05:47] LABS: BASOPHILS % 0.4 % (0.0-1.0); EOSINOPHILS % 0.2 % (0.0-6.0); HEMATOCRIT 26.6 % (34.2-44.1); HEMOGLOBIN 8.8 g/dL (12.0-16.0); LYMPHOCYTES # (AUTO) 1.8 (1.0-3.2); LYMPHOCYTES % 37.3 % (18.0-39.1); MEAN CORPUSCULAR HEMOGLOBIN 31.3 pg (28-32); MEAN CORPUSCULAR HGB CONC 33.1 g/dL (31-35); MEAN CORPUSCULAR VOLUME 94.7 fL (81-99); MONOCYTES # (AUTO) 0.4 (0.2-0.8); NEUTROPHILS # (AUTO) 2.4 (2.1-6.9); PLATELET COUNT 136 x10e3/uL (140-360); RED BLOOD COUNT 2.81 x10e6/uL (3.6-5.1)
[2021-05-02 06:08] LABS: ANION GAP 13.8 mmol/L (8-16); CALCIUM 7.7 mg/dL (8.4-10.2); CREATININE, SERUM 1.68 mg/dL (0.57-1.11); POTASSIUM 3.8 mmol/L (3.5-5.1)
[2021-05-02] MEDS: LACTATED RINGER'S 1,000 ML INJ SCH ×3 (06:31→20:41)
[2021-05-02] MEDS: CALCIUM CARBONATE 500 MG CHEWABLE TABS PO SCH ×4 (08:41→21:00)
[2021-05-02] MEDS: RIVAROXABAN 15 MG TABLET PO SCH (08:41)
[2021-05-02 08:57] LABS: LYMPHOCYTES % (MANUAL) 16 % (19-48); MONOCYTES % (MANUAL) 8 % (3.4-9.0); NEUTROPHILS % (MANUAL) 75 % (40-74); PLATELET ESTIMATE SLIGHTLY DECREASED; PLATELET MORPHOLOGY COMMENT NORMAL; RBC MORPHOLOGY COMMENT NORMAL
[2021-05-02] MEDS ORDERED: MAGNESIUM OXIDE 400 MG TAB PO NR (13:00)
[2021-05-02] MEDS ORDERED: MAGNESIUM SULF 1GRAM/DEXTROSE 100 ML IV ONE (14:30)
[2021-05-02] MEDS: SODIUM BICARBONATE 650 MG TAB PO SCH (15:03)
[2021-05-02] MEDS: MONTELUKAST SODIUM 10 MG TAB PO SCH (20:41)
[2021-05-03] MEDS: CEFTRIAXONE 1 GM in SODIUM CHLORIDE 0.9% 50ML 50 ML IV SCH (03:02)
[2021-05-03 04:57] VITALS: BP 144/60
[2021-05-03 05:04] LABS: BASOPHILS % 0.5 % (0.0-1.0); EOSINOPHILS % 0.8 % (0.0-6.0); HEMATOCRIT 26.6 % (34.2-44.1); HEMOGLOBIN 8.3 g/dL (12.0-16.0); LYMPHOCYTES # (AUTO) 1.7 (1.0-3.2); LYMPHOCYTES % 42.1 % (18.0-39.1); MEAN CORPUSCULAR HEMOGLOBIN 30.6 pg (28-32); MEAN CORPUSCULAR HGB CONC 31.2 g/dL (31-35); MEAN CORPUSCULAR VOLUME 98.2 fL (81-99); MONOCYTES # (AUTO) 0.5 (0.2-0.8); MONOCYTES % 12.8 % (4.4-11.3); NEUTROPHILS # (AUTO) 1.7 (2.1-6.9); NEUTROPHILS % 42.3 % (38.7-80.0); PLATELET COUNT 138 x10e3/uL (140-360); RED BLOOD COUNT 2.71 x10e6/uL (3.6-5.1); RED CELL DISTRIBUTION WIDTH 13.1 % (11.7-14.4)
[2021-05-03] MEDS: LACTATED RINGER'S 1,000 ML INJ SCH (05:27)
[2021-05-03 05:48] LABS: ANION GAP 13.7 mmol/L (8-16); CALCIUM 8.1 mg/dL (8.4-10.2); CREATININE, SERUM 1.06 mg/dL (0.57-1.11); MAGNESIUM 1.6 MG/DL (1.3-2.1); POTASSIUM 3.7 mmol/L (3.5-5.1)
[2021-05-03 06:47] LABS: FERRITIN 704.46 ng/mL (4.63-204.00)
[2021-05-03 07:17] VITALS: BP 138/80
[2021-05-03 07:37] LABS: BAND NEUTROPHILS % (MANUAL) 1 %; LYMPHOCYTES % (MANUAL) 30 % (19-48); MONOCYTES % (MANUAL) 16 % (3.4-9.0); NEUTROPHILS % (MANUAL) 49 % (40-74)
[2021-05-03 07:38] LABS: PLATELET ESTIMATE SLIGHTLY DECREASED; PLATELET MORPHOLOGY COMMENT NORMAL; RBC MORPHOLOGY COMMENT NORMAL
[2021-05-03] MEDS ORDERED: MAGNESIUM OXIDE 400 MG TAB PO ONE (08:30)
[2021-05-03 08:42] VITALS: BP 138/80
[2021-05-03] MEDS: SODIUM BICARBONATE 650 MG TAB PO SCH (08:51)
[2021-05-03] MEDS: CALCIUM CARBONATE 500 MG CHEWABLE TABS PO SCH (08:51)
[2021-05-03] MEDS: RIVAROXABAN 15 MG TABLET PO SCH (08:51)
[2021-05-03 11:18] VITALS: BP 144/82
== END 2021-05-03 12:36 | disposition home or self-care (01) | DRG 872 ==
LOC: ER 12:20 → ERHOLD 14:46 → MED/SURG2 16:13
PROVIDERS: ADMIT Internal Medicine; ATTEND Internal Medicine
DX: A41.9 Sepsis, unspecified organism (principal); N17.9 Acute kidney failure, unspecified; E87.2 Acidosis; A09 Infectious gastroenteritis and colitis, unspecified; K52.9 Noninfective gastroenteritis and colitis, unspecified; E86.0 Dehydration; N18.32 Chronic kidney disease, stage 3b; I12.9 Hypertensive chronic kidney disease with stage 1 through stage 4 chronic kidney disease, or unspecified chronic kidney disease; E78.5 Hyperlipidemia, unspecified; Z86.711 Personal history of pulmonary embolism; Z88.8 Allergy status to other drugs, medicaments and biological substances; Z88.0 Allergy status to penicillin; Z20.822 Contact with and (suspected) exposure to COVID-19; Z96.653 Presence of artificial knee joint, bilateral; E83.51 Hypocalcemia; E66.9 Obesity, unspecified; Z68.31 Body mass index [BMI] 31.0-31.9, adult; E83.42 Hypomagnesemia
CPT/HCPCS: 36415; 71045; 74176; 80048; 80053; 81001; 82550; 82553; 82607; 82728; 82746; 83540; 83605; 83735; 84466; 84484; 85025; 85610; 85730; 87040; 87086; 93005; 99284; J0696; J2405; J3475; J7030; J7121; U0002

== ENCOUNTER → 2021-05-29 | Outpatient (CLI) | payer MEDICARE, OTHER | LOC: US 07:40 | PROVIDERS: ATTEND Internal Medicine Medical Oncology | DX: E83.119 Hemochromatosis, unspecified (principal) | CPT/HCPCS: 76705 ==

== ENCOUNTER → 2023-10-23 | Day surgery (SDC) | payer MEDICARE, OTHER ==
[2023-10-21 09:44] LABS: BASOPHILS # (AUTO) 0.1 (0.0-0.1); BASOPHILS % 1.1 % (0.0-1.0); EOSINOPHILS # (AUTO) 0.6 (0.0-0.4); EOSINOPHILS % 10.4 % (0.0-6.0); HEMATOCRIT 35.1 % (34.2-44.1); HEMOGLOBIN 11.6 g/dL (12.0-16.0); LYMPHOCYTES # (AUTO) 1.9 (1.0-3.2); LYMPHOCYTES % 33.7 % (18.0-39.1); MEAN CORPUSCULAR HEMOGLOBIN 33.1 pg (28-32); MEAN CORPUSCULAR VOLUME 100.3 fL (81-99); MONOCYTES # (AUTO) 0.7 (0.2-0.8); MONOCYTES % 11.7 % (4.4-11.3); NEUTROPHILS # (AUTO) 2.4 (2.1-6.9); NEUTROPHILS % 42.9 % (38.7-80.0); PLATELET COUNT 186 x10e3/uL (140-360); RED CELL DISTRIBUTION WIDTH 12.8 % (11.7-14.4); WHITE BLOOD COUNT 5.66 x10e3/uL (4.8-10.8)
[~2023-10-23] MED LIST changes: +DAILY VITAMIN1 EAC4; +FENTANYL CITRATE/PF 100MCG/2 ML INJ ONE; +LIDOCAINE HCL 2% LOCAL INJ 5 ML SDV VIAL INJ ONE; +METOCLOPRAMIDE HCL 10 MG/2ML VIAL ONE; +PROPOFOL IV EMULSION 10 MG/ML 20 ML VIAL ONE; +PROPOFOL IV EMULSION 10 MG/ML 50 ML VIAL IV ONE
[2023-10-23] MEDS: LACTATED RINGER'S 1,000 ML ONE (08:34)
[2023-10-23 12:01] VITALS: TEMP 97.6
[2023-10-23 12:30] VITALS: BP 156/88; PULSE 92; RESP 16; O2SAT 98
[2023-10-26 10:13] LABS: ENDOMYSIAL ANTIBODIES, IGA Negative (Negative)
[2023-10-26 14:44] LABS: IMMUNOGLOBULIN A 281 mg/dL (64-422); TISSUE TRANSGLUTAMINASE IGA AB <2 U/mL (0-3)
== END | disposition home or self-care (01) ==
LOC: OR 08:27
PROVIDERS: ATTEND Internal Medicine Gastroenterology
DX: K29.50 Unspecified chronic gastritis without bleeding (principal); D12.0 Benign neoplasm of cecum; D12.2 Benign neoplasm of ascending colon; D12.4 Benign neoplasm of descending colon; B96.81 Helicobacter pylori [H. pylori] as the cause of diseases classified elsewhere; K52.9 Noninfective gastroenteritis and colitis, unspecified; K20.90 Esophagitis, unspecified without bleeding; K44.9 Diaphragmatic hernia without obstruction or gangrene; K62.89 Other specified diseases of anus and rectum; K64.8 Other hemorrhoids; I10 Essential (primary) hypertension; E78.5 Hyperlipidemia, unspecified; N39.0 Urinary tract infection, site not specified; M06.9 Rheumatoid arthritis, unspecified; Z88.0 Allergy status to penicillin; Z91.041 Radiographic dye allergy status; Z01.810 Encounter for preprocedural cardiovascular examination; Z01.812 Encounter for preprocedural laboratory examination; Z79.02 Long term (current) use of antithrombotics/antiplatelets; Z79.899 Other long term (current) drug therapy
CPT/HCPCS: 36415; 43239; 45380; 45385; 82784; 83516; 83630; 83993; 85025; 86256; 87045; 87177; 87324; 87328; 87449; 88305; 88312; 88342; 93005; C9113; J2001; J2704 ×2; J2765; J3010; J7121; 45378

== ENCOUNTER 2024-08-06 11:23 | Emergency (ER) | payer OTHER, MEDICARE ==
[~2024-08-06] VITALS: Ht 162.6 cm; Wt 82.1 kg
[~2024-08-06 11:23] MED LIST changes: -FENTANYL CITRATE/PF 100MCG/2 ML INJ ONE; -LIDOCAINE HCL 2% LOCAL INJ 5 ML SDV VIAL INJ ONE; -METOCLOPRAMIDE HCL 10 MG/2ML VIAL ONE; -PROPOFOL IV EMULSION 10 MG/ML 20 ML VIAL ONE; -PROPOFOL IV EMULSION 10 MG/ML 50 ML VIAL IV ONE
[2024-08-06 11:28] VITALS: RESP 16; TEMP 97.6
[2024-08-06 12:12] LABS: BASOPHILS # (AUTO) 0.1 (0.0-0.1); BASOPHILS % 0.9 % (0.0-1.0); EOSINOPHILS # (AUTO) 0.7 (0.0-0.4); EOSINOPHILS % 12.3 % (0.0-6.0); HEMATOCRIT 35.9 % (34.2-44.1); HEMOGLOBIN 10.9 g/dL (12.0-16.0); LYMPHOCYTES % 34.4 % (18.0-39.1); MEAN CORPUSCULAR HEMOGLOBIN 33.3 pg (28-32); MEAN CORPUSCULAR HGB CONC 30.4 g/dL (31-35); MEAN CORPUSCULAR VOLUME 109.8 fL (81-99); MONOCYTES # (AUTO) 0.5 (0.2-0.8); MONOCYTES % 7.9 % (4.4-11.3); NEUTROPHILS # (AUTO) 2.5 (2.1-6.9); NEUTROPHILS % 44.3 % (38.7-80.0); PLATELET COUNT 211 x10e3/uL (140-360); RED BLOOD COUNT 3.27 x10e6/uL (3.6-5.1); RED CELL DISTRIBUTION WIDTH 12.6 % (11.7-14.4); WHITE BLOOD COUNT 5.67 x10e3/uL (4.8-10.8)
[2024-08-06 12:30] LABS: INR 1.13; PROTHROMBIN TIME 15.2 seconds (11.9-14.5)
[2024-08-06 12:31] LABS: PARTIAL THROMBOPLASTIN TIME 34.3 seconds (23.8-35.5)
[2024-08-06 12:40] LABS: ALBUMIN 4.2 g/dL (3.5-5.0); ALBUMIN/GLOBULIN RATIO 1.3 (0.8-2.0); ANION GAP 16.8 mmol/L (8-16); BILIRUBIN,TOTAL 0.4 mg/dL (0.2-1.2); CALCIUM 9.5 mg/dL (8.4-10.2); CREATININE, SERUM 1.53 mg/dL (0.57-1.11); POTASSIUM 3.8 mmol/L (3.5-5.1); TOTAL PROTEIN 7.5 g/dL (6.5-8.1)
[2024-08-06 12:47] LABS: TROPONIN I 0.017 ng/mL (0-0.300)
[2024-08-06] MEDS ORDERED: SODIUM CHLORIDE 0.9% 500ML 500 ML IV ONE (13:30)
[2024-08-06 13:35] VITALS: PULSE 67
[2024-08-06 14:06] VITALS: BP 122/61; PULSE 70; O2SAT 100
== END 2024-08-06 14:30 | disposition home or self-care (01) ==
LOC: ER 11:42
DX: S00.83XA Contusion of other part of head, initial encounter (principal); M25.511 Pain in right shoulder; M25.551 Pain in right hip; R55 Syncope and collapse; W18.39XA Other fall on same level, initial encounter; Y92.89 Other specified places as the place of occurrence of the external cause; I12.9 Hypertensive chronic kidney disease with stage 1 through stage 4 chronic kidney disease, or unspecified chronic kidney disease; N18.9 Chronic kidney disease, unspecified; E78.5 Hyperlipidemia, unspecified; Z86.718 Personal history of other venous thrombosis and embolism
CPT/HCPCS: 36415; 70450; 70486; 71250; 72125; 72131; 72192; 80053; 82550; 83735; 83880; 84484; 85025; 85610; 85730; 93005; 99283

== ENCOUNTER → 2025-02-25 | Day surgery (SDC) | payer OTHER, MEDICARE ==
[2025-02-19 12:26] LABS: BASOPHILS % 0.8 % (0.0-1.0); EOSINOPHILS % 2.4 % (0.0-6.0); LYMPHOCYTES % 39.6 % (18.0-39.1); MONOCYTES % 9.6 % (4.4-11.3); NEUTROPHILS % 47.4 % (38.7-80.0); RED CELL DISTRIBUTION WIDTH 12.9 % (11.7-14.4)
[~2025-02-25] MED LIST changes: +FENTANYL CITRATE/PF 100MCG/2 ML INJ ONE; +GLUCAGON FOR INJ 1 MG VIAL ONE; +HYOSCYAMINE SULFATE 0.5 MG/ML INJ ONE; +KETAMINE HCL INJ 50 MG/ML 10 ML VIAL ONE; +LACTATED RINGER'S 1,000 ML ONE; +LIDOCAINE HCL 2% LOCAL INJ 5 ML SDV VIAL INJ ONE; +MOUNJARO2.5 MG/0.5; +ONDANSETRON HCL INJ 2MG/ML 2ML 2 MG/ML VIAL ONE; +PROPOFOL IV EMULSION 10 MG/ML 20 ML VIAL ONE
[2025-02-25 14:42] VITALS: TEMP 97.1
[2025-02-25 15:00] VITALS: BP 118/70; PULSE 87; RESP 18; O2SAT 99
== END | disposition home or self-care (01) ==
LOC: OR 11:00
PROVIDERS: ATTEND Internal Medicine Gastroenterology
DX: K92.1 Melena (principal); D12.3 Benign neoplasm of transverse colon; K57.30 Diverticulosis of large intestine without perforation or abscess without bleeding; K64.8 Other hemorrhoids; K21.9 Gastro-esophageal reflux disease without esophagitis; Z71.3 Dietary counseling and surveillance; I10 Essential (primary) hypertension; E78.5 Hyperlipidemia, unspecified; Z88.0 Allergy status to penicillin; Z91.041 Radiographic dye allergy status; Z01.810 Encounter for preprocedural cardiovascular examination; Z01.812 Encounter for preprocedural laboratory examination; Z79.02 Long term (current) use of antithrombotics/antiplatelets; Z79.85 Long-term (current) use of injectable non-insulin antidiabetic drugs; Z79.899 Other long term (current) drug therapy; Z86.19 Personal history of other infectious and parasitic diseases; Z91.81 History of falling; Z86.711 Personal history of pulmonary embolism; Z80.0 Family history of malignant neoplasm of digestive organs
CPT/HCPCS: 36415; 45385; 85025; 93005; J1610; J1980; J2003; J2405; J2704; J3010; J7121; 45378